=== PATIENT | female | born 1955 | race Caucasian/White ===

== ENCOUNTER 2017-02-24 08:35 | Outpatient (CLI) | payer BC ==
--- OUTSIDE RECORDS SUMMARY | 2017-02-24 08:41 | XMS | Clinical Summary ---
:1955 Author Organization [facility] Address [address] [place] [address] Phone Care Team Providers Name Role Phone Ariela Figueroa Primary Care Provider tel Allergies Not on File Current Medications Not on file Active Problems Not on file Social History Tobacco Use Types Packs/Day Years Used Date Never Assessed Sex Assigned at Date Recorded Not on file Last Filed Vital Signs Not on file Plan of Treatment Not on file Results Not on filefrom Last 3 Months
--- NOTE | 2017-02-24 14:05 | CT ---
CT ABDOMEN AND PELVIS WITH AND WITHOUT CONTRAST: Date: 02/24/17 HISTORY: Z85.51, history of bladder cancer. R31.9, hematuria. COMPARISON: None. CT: CT abdomen and pelvis performed prior to and after the intravenous administration of contrast. 90 se cond and 4 minute delay were obtained. FINDINGS: On the noncontrast portion of the examination, there is mild atherosclerotic plaque of the aorta. No abnormal calcifications within the renal collecting systems. There are phleboliths in the pelvis. Lung bases are clear. No pericardial effusion. Liver and gallbladder are unremarkable. There is a cy st within the right lobe of the liver. The spleen and pancreas are unremarkable, as well as the adre nal glands. There are numerous too small to characterize hypodensities throughout both kidneys. No hydroureteronephrosis. There is mild blunting of the bilateral renal papilla. No definite filling defect is appreciated within the urinary bladder. No significant abnormal bladder wall thickening. Mild reverse S-shaped scoliosis of the thoracic spine. There is no abnormal attenuation of contrast from the renal carson into the renal papilla. The aortoiliac contour is normal. No aneurysmal dilatation. No adenopathy. There is some small volume free fluid in the pelvis. No suspicious osteolytic or osteoblastic lesion s. IMPRESSION: 1. No abnormal filling defects seen within the urinary bladder, even given the patient's history of bladder cancer. 2. 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 This can be a cause of hematuria. 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 3. Hepatic segment 5 cyst. 4. No adenopathy or evidence of osseous metastatic disease. 5. Numerous renal hypodensities, too small to characterize, although likely cysts. POS: [facility]
[2017-02-24] MEDS ORDERED: Iopamidol 370 76% 100 ML VIAL ONE (15:50)
== END 2017-02-24 08:36 | disposition home or self-care (01) ==
LOC: CT 08:35
PROVIDERS: ATTEND Urology
DX: R31.9 Hematuria, unspecified (principal); K76.89 Other specified diseases of liver; N17.2 Acute kidney failure with medullary necrosis; Z85.51 Personal history of malignant neoplasm of bladder
CPT/HCPCS: 74178

== ENCOUNTER 2017-11-24 11:20 | Outpatient (CLI) | payer BC | END 2017-11-24 11:21 | disposition home or self-care (01) | LOC: BICRAD 11:20 | PROVIDERS: ATTEND Family Medicine | DX: R05 Cough (principal) | CPT/HCPCS: 71046 ==